=== PATIENT | female | born 1940 | race Caucasian/White ===

== ENCOUNTER 2016-06-13 17:03 | Emergency (ER) | payer OTHER ==
[2016-06-13 17:14] VITALS: BP 141/68; PULSE 79; TEMP 98.5; BMI 27.3
[2016-06-13] MEDS ORDERED: OXYCODONE/APAP 5/325MG COMBO TABLET PO ONE (17:52)
[2016-06-13] MEDS ORDERED: METHOCARBAMOL 500 MG TABLET PO ONE (17:52)
--- NOTE | 2016-06-13 17:52 | PDOC ---
[id number] is a 75 year old female with a past medical history of HTN, THR ( 10 years ago, with no complications since) who presents to the emergency department with a complaint of right hip pain since earlier today. The patient had woken up with the pain. The pain radiates down the leg and also into the back. Pain is described as a shooting pain worsened with ambulation and movement. Patient tried to take 50 mg Oxycodone with minimal relief of pain. Patient denies weakness or numbness in the leg. Denies recent trauma or falls. Denies urinary urgency ,frequency. <Clemente Washington - Last Filed: 06/13/16 17:58> <Alice Holbrook - Last Filed: 06/13/16 20:04> <Ynes Newby - Last Filed: 06/15/16 21:56> - General Chief Complaint: Pain Stated Complaint: RT HIP PAIN Time Seen by Provider: 06/13/16 17:45 Past History <Clemente Washington - Last Filed: 06/13/16 17:58> <Alice Holbrook - Last Filed: 06/13/16 20:04> - Past Medical History HTN: Yes - Psycho/Social/Smoking Cessation Hx Anxiety: No Suicidal Ideation: No Smoking History: Never smoked Have you smoked in the past 12 months: No Information on smoking cessation initiated: No Hx Alcohol Use: No Drug/Substance Use Hx: No Substance Use Type: None <Ynes Newby - Last Filed: 06/15/16 21:56> - Past Medical History Allergies/Adverse Reactions: Allergies Allergy/AdvReac Type Severity Reaction Status Date / Time Penicillins Allergy Unknown Verified 06/13/16 17:04 Home Medications: Ambulatory Orders Amlodipine Besylate 5 mg PO DAILY 06/13/16 Folic Acid 0.4 mg PO DAILY 06/13/16 Meloxicam [Mobic (Nf) -] 15 mg PO DAILY 06/13/16 Methocarbamol [Robaxin -] 500 mg PO TID PRN #12 tablet 06/13/16 Ofloxacin [Ocuflox] 5 ml OP DAILY 06/13/16 Oxycodone HCl/Acetaminophen [Percocet 5-325 mg Tablet] 1 tab PO Q6H PRN #16 tablet MDD 4 tablets 06/13/16 Review of Systems - Review of Systems Able to Perform ROS?: Yes Comments:: 06/13/16 17:57 GENERAL/CONSTITUTIONAL: No fever or chills. No weakness. GASTROINTESTINAL: No nausea, vomiting, diarrhea or constipation. GENITOURINARY: No dysuria, frequency, or change in urination. MUSCULOSKELETAL: Yes: Left hip pain , Yes lower back pain No joint or muscle swelling. No neck pain. SKIN: No rash NEUROLOGIC: No headache, vertigo, loss of consciousness, or change in strength/ sensation. <Clemente Washington - Last Filed: 06/13/16 17:58> *Physical Exam - Vital Signs Last Vital Signs Temp Pulse Resp BP Pulse Ox 98.5 F 79 17 141/68 99 06/13/16 17:03 06/13/16 17:03 06/13/16 17:03 06/13/16 17:03 06/13/16 17:03 - Physical Exam Comments: 06/13/16 17:57 GENERAL: Awake, alert, and fully oriented, in no acute distress EXTREMITIES: right gluteus muscle spasm over the periformis, normal range of motion, no edema. No clubbing or cyanosis. No cords, erythema, or tenderness NEUROLOGICAL: No focal deficits, moving all 4 extremities spontaneously SKIN: Warm, Dry, normal turgor, no rashes or lesions noted. <Clemente Washington - Last Filed: 06/13/16 17:58> - Vital Signs Last Vital Signs Temp Pulse Resp BP Pulse Ox 98.5 F 79 17 141/68 99 06/13/16 17:03 06/13/16 17:03 06/13/16 17:03 06/13/16 17:03 06/13/16 17:03 <Alice Holbrook - Last Filed: 06/13/16 20:04> - Vital Signs Last Vital Signs Temp Pulse Resp BP Pulse Ox 98.5 F 79 17 141/68 99 06/13/16 17:03 06/13/16 17:03 06/13/16 17:03 06/13/16 17:03 06/13/16 17:03 <Ynes Newby - Last Filed: 06/15/16 21:56> ED Treatment Course - Medications Given in the ED: ED Medications Discontinued Medications Generic Name Dose Route Start Last Admin Trade Name Freq PRN Reason Stop Dose Admin Diazepam 5 mg 06/13/16 18:04 06/13/16 18:07 Valium - PO 06/13/16 18:05 5 mg ONCE ONE Administration Methocarbamol 500 mg 06/13/16 17:52 06/13/16 18:30 Robaxin - PO 06/13/16 17:53 Not Given ONCE ONE Oxycodone/Acetaminophen 1 combo 06/13/16 17:52 06/13/16 18:07 Percocet 5/325 - PO 06/13/16 17:53 1 combo ONCE ONE Administration <Alice Holbrook - Last Filed: 06/13/16 20:04> Medical Decision Making - Medical Decision Making 06/13/16 19:[address] Holbrook at 7pm shift change. P/w R hip pain, history of prior hip replacement. Awaiting XR results and reassessment. <Ynes Newby - Last Filed: 06/15/16 21:56> *DC/Admit/Observation/Transfer - Attestations Scribe Attestion: 06/13/16 17:58 Documentation prepared by Clemente Washington, acting as biomedical field service engineer for Ynes Newby MD <Clemente Washington - Last Filed: 06/13/16 17:58> <Alice Holbrook - Last Filed: 06/13/16 20:04> <Ynes Newby - Last Filed: 06/15/16 21:56> Diagnosis at time of Disposition: Contusion, hip Qualifiers: Encounter type: initial encounter Laterality: right Qualified Code(s): S70.01XA - Contusion of right hip, initial encounter Sprain of right hip Qualifiers: Encounter type: initial encounter Qualified Code(s): S73.101A - Unspecified sprain of right hip, initial encounter - Discharge Dispostion Disposition: HOME Condition at time of disposition: Stable - Prescriptions Prescriptions: Oxycodone HCl/Acetaminophen [Percocet 5-325 mg Tablet] 1 tab PO Q6H PRN #16 tablet MDD 4 tablets PRN Reason: Severe Pain Methocarbamol [Robaxin -] 500 mg PO TID PRN #12 tablet PRN Reason: Muscle Spasms - Referrals Referrals: Bobby Ford MD [Staff Physician] - - Patient Instructions Printed Discharge Instructions: DI for Contusion Additional Instructions: avoid strenuous activity(no work) for the next week Tylenol as needed for mild pain Percocet 5/325(up to 4 times a day)for severe pain Robaxin 500mg as needed for muscle spasms followup with Dr Eisenberg within 1 week consult with spine surgeon(Dr Ford) if severe pain persists return to ER if pain persists - Post Discharge Activity Work/School Note: Back to Work
[2016-06-13] MEDS ORDERED: diazePAM 5 MG TABLET PO ONE (18:04)
[2016-06-13] MEDS ORDERED: OXYCODONE/APAP 5/325MG COMBO TABLET ONE (18:05)
[2016-06-13] MEDS ORDERED: diazePAM 5 MG TABLET ONE (18:05)
--- NOTE | 2016-06-13 19:17 | PDOC ---
*Physical Exam - Vital Signs Last Vital Signs Temp Pulse Resp BP Pulse Ox 98.5 F 79 17 141/68 99 06/13/16 17:03 06/13/16 17:03 06/13/16 17:03 06/13/16 17:03 06/13/16 17:03 ED Treatment Course - Medications Given in the ED: ED Medications Discontinued Medications Generic Name Dose Route Start Last Admin Trade Name Elizabet PRN Reason Stop Dose Admin Diazepam 5 mg 06/13/16 18:04 06/13/16 18:07 Valium - PO 06/13/16 18:05 5 mg ONCE ONE Administration Methocarbamol 500 mg 06/13/16 17:52 06/13/16 18:30 Robaxin - PO 06/13/16 17:53 Not Given ONCE ONE Oxycodone/Acetaminophen 1 combo 06/13/16 17:52 06/13/16 18:07 Percocet 5/325 - PO 06/13/16 17:53 1 combo ONCE ONE Administration Progress Note - Progress Note Progress Note: Care of this patient received from Dr. Newby. X-ray of the right hip and pelvis as well as a lumbosacral spine was performed. This showed both hip joints appear intact without evidence of acute fracture or dislocation. Metallic hardware in the right hip in satisfactory alignment. Spine x-ray revealed multilevel degenerative disc disease at and minimal anterolisthesis of L3 over L4 without gross compression fracture identified. Results discussed with the patient. Patient states that she has had some relief of her pain with medications( Valium/oxycodone). 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 Since patient cannot take anti- inflammatory medications, she is asked for limited description of "stronger" pain medication, as well as muscle relaxant. Prescription for Robaxin 500 mg to be taken up to 3 times a day will be transmitted to the patient's pharmacy. Also, prescription for Percocet 5/325(#16) to be taken as needed for severe pain will also be sent to her pharmacy. Patient has been advised that both of these medications are sedating and that she should be very careful in using these simultaneously. Also, she should refrain from taking his medications if she needs to perform any activities that require full attention. Patient will follow-up with her general medical doctor, Dr. iEsenberg, within the next week. She will also be given referral to orthopedic spine physician, Dr. Ford with whom she should follow-up if she continues to have severe pain. *DC/Admit/Observation/Transfer Diagnosis at time of Disposition: Contusion, hip Qualifiers: Encounter type: initial encounter Laterality: right Qualified Code(s): S70.01XA - Contusion of right hip, initial encounter Sprain of right hip Qualifiers: Encounter type: initial encounter Qualified Code(s): S73.101A - Unspecified sprain of right hip, initial encounter - Discharge Dispostion Disposition: HOME Condition at time of disposition: Stable - Prescriptions Prescriptions: Oxycodone HCl/Acetaminophen [Percocet 5-325 mg Tablet] 1 tab PO Q6H PRN #16 tablet MDD 4 tablets PRN Reason: Severe Pain Methocarbamol [Robaxin -] 500 mg PO TID PRN #12 tablet PRN Reason: Muscle Spasms - Referrals Referrals: Bobby Ford MD [Staff Physician] - - Patient Instructions Printed Discharge Instructions: DI for Contusion Additional Instructions: avoid strenuous activity(no work) for the next week Tylenol as needed for mild pain Percocet 5/325(up to 4 times a day)for severe pain Robaxin 500mg as needed for muscle spasms followup with Dr Eisenberg within 1 week consult with spine surgeon(Dr Ford) if severe pain persists return to ER if pain persists - Post Discharge Activity Work/School Note: Back to Work
== END 2016-06-13 20:21 | disposition home or self-care (01) ==
LOC: FER 17:03
DX: S70.01XA Contusion of right hip, initial encounter (principal); S73.101A Unspecified sprain of right hip, initial encounter; X58.XXXA Exposure to other specified factors, initial encounter; Y93.9 Activity, unspecified; Y92.9 Unspecified place or not applicable; I10 Essential (primary) hypertension
CPT/HCPCS: 72100-TC; 73523-TC; 99282-25

== ENCOUNTER 2021-08-04 13:24 | Inpatient (IN) | payer OTHER ==
[2021-08-04 13:35] VITALS: BMI 29.2
[2021-08-04] MEDS ORDERED: DOXYCYCLINE INJECTION 100 MG in DEXTROSE 5%-WATER 100 ML IVPB ONE (14:08)
[2021-08-04 15:14] LABS: HEMATOCRIT 42.9 % (32.4-45.2); HEMOGLOBIN 14.8 G/dL (10.7-15.3); MCH 30.9 pg (25.7-33.7); MCHC 34.5 g/dl (32.0-36.0); MEAN CELL VOLUME 89.5 fl (80-96); MEAN PLT VOLUME 9.2 fl (7.5-11.1); PLATELET COUNT 221.1 10^3/uL (134-434); RBC 4.79 10^6/uL (3.60-5.2); RDW 14.1 % (11.6-15.6); WHITE BLOOD COUNT 21.4 10^3/uL (4.0-10.8)
[2021-08-04 15:15] LABS: ALBUMIN 3.8 g/dl (3.4-5.0); BILIRUBIN,TOTAL 0.9 mg/dl (0.2-1); CALCIUM 9.2 mg/dl (8.5-10); CREATININE 1.1 mg/dl (0.55-1.3); TOT PROT 7.6 g/dl (6.4-8.2)
[2021-08-04 15:23] LABS: ERYTHROCYTE SEDIMENTATION RATE 58 mm/hr (0-30)
[2021-08-04] MEDS ORDERED: SODIUM CHLORIDE 1,000 ML IV SCH (16:15)
[2021-08-04] MEDS ORDERED: ONDANSETRON 4 MG/2 ML VIAL IVPUSH ONE (20:47)
[2021-08-04] MEDS ORDERED: ACETAMINOPHEN 1000 MG/100 ML BAG IVPB ONE (20:48)
[2021-08-04] MEDS ORDERED: DEXTROSE 5%-WATER 100 ML IVPB ONE (21:29)
[2021-08-04] MEDS ORDERED: DOXYCYCLINE HYCLATE 100 MG VIAL ONE (21:29)
[2021-08-04] MEDS: DOXYCYCLINE INJECTION 100 MG in DEXTROSE 5%-WATER 100 ML IVPB SCH (21:41)
[2021-08-04] MEDS: traMADol HCL 50 MG TABLET PO PRN (23:38)
[2021-08-05] MEDS: ACETAMINOPHEN 325 MG TABLET (FP) PO PRN ×2 (05:03→21:53)
[2021-08-05] MEDS: FAMOTIDINE 10 MG TABLET PO SCH ×2 (06:28→21:39)
[2021-08-05] MEDS ORDERED: LIDOCAINE 5% TOPICAL PATCH TP ONE (06:41)
[2021-08-05] MEDS: traMADol HCL 50 MG TABLET PO PRN ×3 (07:52→22:57)
[2021-08-05] MEDS ORDERED: DOXYCYCLINE HYCLATE 100 MG VIAL ONE (10:00)
[2021-08-05] MEDS ORDERED: DEXTROSE 5%-WATER 100 ML IVPB ONE (10:00)
[2021-08-05] MEDS: amLODIPine BESYLATE 5 MG TABLET (FP) PO SCH (10:06)
[2021-08-05] MEDS: DULoxetine HCL 30 MG CAPSULE.DR PO SCH (10:06)
[2021-08-05] MEDS: DOXYCYCLINE INJECTION 100 MG in DEXTROSE 5%-WATER 100 ML IVPB SCH (10:06)
[2021-08-05] MEDS: ENOXAPARIN NA (PORCINE) 40 MG/0.4 ML DISP.SYRIN SQ SCH (12:53)
[2021-08-05] MEDS: ATENOLOL 50 MG TABLET (FP) PO SCH (12:54)
[2021-08-05 13:40] LABS: HEMATOCRIT 40.9 % (32.4-45.2); HEMOGLOBIN 14.2 G/dL (10.7-15.3); MCH 31.1 pg (25.7-33.7); MCHC 34.6 g/dl (32.0-36.0); MEAN CELL VOLUME 89.7 fl (80-96); MEAN PLT VOLUME 10.2 fl (7.5-11.1); PLATELET COUNT 183.4 10^3/uL (134-434); RBC 4.56 10^6/uL (3.60-5.2); RDW 15.6 % (11.6-15.6); WHITE BLOOD COUNT 17.8 10^3/uL (4.0-10.8)
[2021-08-05] MEDS: GABAPENTIN 300 MG CAPSULE PO SCH ×2 (15:17→21:38)
[2021-08-05 16:18] LABS: ADD RBC MORPHOLOGY YES
[2021-08-05 16:19] LABS: ANISOCYTOSIS 1+; PLATELET ESTIMATE ADEQUATE
[2021-08-05] MEDS ORDERED: LIDOCAINE PATCH REMOVAL MC SCH (22:00)
[2021-08-05] MEDS: METHOTREXATE 2.5 MG TABLET PO SCH (22:56)
[2021-08-06] MEDS: ACETAMINOPHEN 325 MG TABLET (FP) PO PRN ×2 (04:07→22:23)
[2021-08-06] MEDS: GABAPENTIN 300 MG CAPSULE PO SCH ×3 (06:22→21:22)
[2021-08-06] MEDS: amLODIPine BESYLATE 5 MG TABLET (FP) PO SCH (09:21)
[2021-08-06] MEDS: ATENOLOL 50 MG TABLET (FP) PO SCH (09:22)
[2021-08-06] MEDS: DULoxetine HCL 30 MG CAPSULE.DR PO SCH (09:22)
[2021-08-06] MEDS: traMADol HCL 50 MG TABLET PO PRN ×2 (09:22→16:07)
[2021-08-06] MEDS: METHOTREXATE 2.5 MG TABLET PO SCH ×2 (09:23→21:22)
[2021-08-06] MEDS: ENOXAPARIN NA (PORCINE) 40 MG/0.4 ML DISP.SYRIN SQ SCH (09:23)
[2021-08-06 13:49] LABS: ALBUMIN 2.7 g/dl (3.4-5.0); BILIRUBIN,TOTAL 0.5 mg/dl (0.2-1); CALCIUM 8.5 mg/dl (8.5-10); CREATININE 0.8 mg/dl (0.55-1.3); MAGNESIUM 1.8 mg/dL (1.8-2.4); TOT PROT 5.7 g/dl (6.4-8.2)
[2021-08-06 14:00] LABS: HEMATOCRIT 37.7 % (32.4-45.2); HEMOGLOBIN 13.1 G/dL (10.7-15.3); MCH 30.8 pg (25.7-33.7); MCHC 34.7 g/dl (32.0-36.0); MEAN CELL VOLUME 88.6 fl (80-96); MEAN PLT VOLUME 9.4 fl (7.5-11.1); PLATELET COUNT 175.6 10^3/uL (134-434); RBC 4.25 10^6/uL (3.60-5.2); RDW 15.3 % (11.6-15.6); WHITE BLOOD COUNT 12.8 10^3/uL (4.0-10.8)
[2021-08-06 14:29] LABS: ADD RBC MORPHOLOGY YES; PLATELET ESTIMATE ADEQUATE
[2021-08-06 14:31] LABS: ANISOCYTOSIS 1+
[2021-08-06] MEDS: LEFLUNOMIDE 10 MG TABLET PO SCH (16:06)
[2021-08-06] MEDS: VANCOMYCIN 1 GRAM (PRE-DOCKED) 1,000 MG/250 ML BAG IVPB SCH (18:50)
[2021-08-06] MEDS: FAMOTIDINE 10 MG TABLET PO SCH (21:22)
[2021-08-07] MEDS: GABAPENTIN 300 MG CAPSULE PO SCH ×3 (05:11→22:01)
[2021-08-07] MEDS: ACETAMINOPHEN 325 MG TABLET (FP) PO PRN ×2 (05:12→16:41)
[2021-08-07] MEDS: traMADol HCL 50 MG TABLET PO PRN ×3 (06:01→23:03)
[2021-08-07 08:04] LABS: HEMATOCRIT 40.3 % (32.4-45.2); HEMOGLOBIN 13.8 G/dL (10.7-15.3); MCH 30.6 pg (25.7-33.7); MCHC 34.2 g/dl (32.0-36.0); MEAN CELL VOLUME 89.5 fl (80-96); MEAN PLT VOLUME 9.7 fl (7.5-11.1); PLATELET COUNT 206.6 10^3/uL (134-434); RDW 15.7 % (11.6-15.6); WHITE BLOOD COUNT 12.9 10^3/uL (4.0-10.8)
[2021-08-07 08:52] LABS: BILIRUBIN,TOTAL 0.8 mg/dl (0.2-1)
[2021-08-07 09:05] LABS: ALBUMIN 2.7 g/dl (3.4-5.0); CALCIUM 8.7 mg/dl (8.5-10); CREATININE 0.8 mg/dl (0.55-1.3); MAGNESIUM 1.9 mg/dL (1.8-2.4)
[2021-08-07] MEDS: LEFLUNOMIDE 10 MG TABLET PO SCH (10:37)
[2021-08-07] MEDS: amLODIPine BESYLATE 5 MG TABLET (FP) PO SCH (10:37)
[2021-08-07] MEDS: DULoxetine HCL 30 MG CAPSULE.DR PO SCH (10:37)
[2021-08-07] MEDS: ATENOLOL 50 MG TABLET (FP) PO SCH (10:37)
[2021-08-07] MEDS: METHOTREXATE 2.5 MG TABLET PO SCH ×2 (10:37→22:01)
[2021-08-07] MEDS: ENOXAPARIN NA (PORCINE) 40 MG/0.4 ML DISP.SYRIN SQ SCH (10:38)
[2021-08-07 12:44] LABS: PLATELET ESTIMATE ADEQUATE
[2021-08-07] MEDS: VANCOMYCIN 1 GRAM (PRE-DOCKED) 1,000 MG/250 ML BAG IVPB SCH (16:58)
[2021-08-07] MEDS: FAMOTIDINE 10 MG TABLET PO SCH (22:01)
[2021-08-08] MEDS: ACETAMINOPHEN 325 MG TABLET (FP) PO PRN ×2 (04:30→13:01)
[2021-08-08] MEDS: GABAPENTIN 300 MG CAPSULE PO SCH ×3 (06:53→21:18)
[2021-08-08] MEDS: traMADol HCL 50 MG TABLET PO PRN ×2 (08:27→20:40)
[2021-08-08 09:21] LABS: HEMATOCRIT 37.5 % (32.4-45.2); HEMOGLOBIN 13.1 G/dL (10.7-15.3); MCH 31.4 pg (25.7-33.7); MEAN CELL VOLUME 89.5 fl (80-96); MEAN PLT VOLUME 9.4 fl (7.5-11.1); PLATELET COUNT 197.2 10^3/uL (134-434); RBC 4.19 10^6/uL (3.60-5.2); RDW 15.1 % (11.6-15.6); WHITE BLOOD COUNT 7.5 10^3/uL (4.0-10.8)
[2021-08-08] MEDS: DULoxetine HCL 30 MG CAPSULE.DR PO SCH (09:27)
[2021-08-08] MEDS: ENOXAPARIN NA (PORCINE) 40 MG/0.4 ML DISP.SYRIN SQ SCH (09:27)
[2021-08-08] MEDS: LEFLUNOMIDE 10 MG TABLET PO SCH (09:27)
[2021-08-08] MEDS: METHOTREXATE 2.5 MG TABLET PO SCH ×2 (09:28→21:18)
[2021-08-08] MEDS: ATENOLOL 50 MG TABLET (FP) PO SCH (09:28)
[2021-08-08] MEDS: amLODIPine BESYLATE 5 MG TABLET (FP) PO SCH (09:28)
[2021-08-08 09:48] LABS: CALCIUM 8.5 mg/dl (8.5-10); CREATININE 0.8 mg/dl (0.55-1.3)
[2021-08-08] MEDS: VANCOMYCIN 1 GRAM (PRE-DOCKED) 1,000 MG/250 ML BAG IVPB SCH (17:34)
[2021-08-08] MEDS: FAMOTIDINE 10 MG TABLET PO SCH (21:19)
[2021-08-09] MEDS: ACETAMINOPHEN 325 MG TABLET (FP) PO PRN ×2 (01:36→09:32)
[2021-08-09] MEDS: GABAPENTIN 300 MG CAPSULE PO SCH ×3 (06:18→21:19)
[2021-08-09 08:15] LABS: CALCIUM 8.5 mg/dl (8.5-10); CREATININE 0.7 mg/dl (0.55-1.3); HEMATOCRIT 37.7 % (32.4-45.2); HEMOGLOBIN 13.1 G/dL (10.7-15.3); MCH 31.1 pg (25.7-33.7); MCHC 34.7 g/dl (32.0-36.0); MEAN CELL VOLUME 89.8 fl (80-96); MEAN PLT VOLUME 9.2 fl (7.5-11.1); PLATELET COUNT 174.6 10^3/uL (134-434); WHITE BLOOD COUNT 5.9 10^3/uL (4.0-10.8)
[2021-08-09] MEDS: amLODIPine BESYLATE 5 MG TABLET (FP) PO SCH (09:32)
[2021-08-09] MEDS: DULoxetine HCL 30 MG CAPSULE.DR PO SCH (09:32)
[2021-08-09] MEDS: LEFLUNOMIDE 10 MG TABLET PO SCH (09:32)
[2021-08-09] MEDS: METHOTREXATE 2.5 MG TABLET PO SCH ×2 (09:32→21:19)
[2021-08-09] MEDS: ATENOLOL 50 MG TABLET (FP) PO SCH (09:33)
[2021-08-09] MEDS: ENOXAPARIN NA (PORCINE) 40 MG/0.4 ML DISP.SYRIN SQ SCH (09:33)
[2021-08-09] MEDS: PANTOPRAZOLE 40 MG TABLET PO SCH (14:02)
[2021-08-09] MEDS: traMADol HCL 50 MG TABLET PO PRN (15:26)
[2021-08-09] MEDS: VANCOMYCIN 1 GRAM (PRE-DOCKED) 1,000 MG/250 ML BAG IVPB SCH (16:29)
[2021-08-09] MEDS: DOXYCYCLINE HYCLATE 100 MG CAPSULE PO SCH (21:40)
[2021-08-09] MEDS: metroNIDAZOLE 250 MG TABLET PO SCH (21:40)
[2021-08-10] MEDS: traMADol HCL 50 MG TABLET PO PRN (05:15)
[2021-08-10] MEDS: GABAPENTIN 300 MG CAPSULE PO SCH (05:15)
[2021-08-10] MEDS: metroNIDAZOLE 250 MG TABLET PO SCH (05:15)
[2021-08-10 06:16] VITALS: BP 116/51; PULSE 74; TEMP 99.2
[2021-08-10] MEDS: LEFLUNOMIDE 10 MG TABLET PO SCH (09:12)
[2021-08-10] MEDS: DULoxetine HCL 30 MG CAPSULE.DR PO SCH (09:13)
[2021-08-10] MEDS: METHOTREXATE 2.5 MG TABLET PO SCH (09:13)
[2021-08-10] MEDS: DOXYCYCLINE HYCLATE 100 MG CAPSULE PO SCH (09:14)
[2021-08-10] MEDS: amLODIPine BESYLATE 5 MG TABLET (FP) PO SCH (09:14)
[2021-08-10] MEDS: ATENOLOL 50 MG TABLET (FP) PO SCH (09:14)
[2021-08-10] MEDS: PANTOPRAZOLE 40 MG TABLET PO SCH (09:14)
[2021-08-10] MEDS: ENOXAPARIN NA (PORCINE) 40 MG/0.4 ML DISP.SYRIN SQ SCH (09:15)
== END 2021-08-10 14:59 | disposition home or self-care (01) | DRG 603 ==
LOC: FER 13:24 → UNDOADMOB 15:27 → FM/S 15:27 → OBSVTOIN 16:15 → INTOOBSV 16:15 → FM/S 18:41 → OBSVTOIN 08-05 12:22
PROVIDERS: ADMIT Internal Medicine; ATTEND Nurse Practitioner Acute Care
DX: L03.113 Cellulitis of right upper limb (principal); I10 Essential (primary) hypertension; M06.9 Rheumatoid arthritis, unspecified; G62.9 Polyneuropathy, unspecified; D72.829 Elevated white blood cell count, unspecified; S61.451A Open bite of right hand, initial encounter; W55.01XA Bitten by cat, initial encounter; Y93.9 Activity, unspecified; Y92.89 Other specified places as the place of occurrence of the external cause; Y99.9 Unspecified external cause status
CPT/HCPCS: 36415; 73110-TC-RT-FY; 73130-TC-RT-FY; 73200-TC-RT; 80048; 80053; 82962; 83735; 85025; 85027; 85651; 86140; 87040; 87324; 87449; 97116-GP; 97162-GP; 99285-25; C9803-CS; G0378; G0480; J8610; U0003; U0005